=== PATIENT | female | born 1945 ===

== ENCOUNTER 2019-12-19 11:45 | Inpatient (IN) | payer OTHER ==
[~2019-12-19] VITALS: Ht 172.7 cm; Wt 97.5 kg
[2019-12-20] MEDS ORDERED: FORTAMET500 MG PO (13:22)
[2019-12-20] MEDS ORDERED: METROPOL PO (13:22)
[2019-12-20] MEDS ORDERED: OSTERA TABLET1 EACH (13:23)
[2019-12-20] MEDS ORDERED: [UNRECOGNIZED DRUG - OTHER] PO (13:23)
[2019-12-20] MEDS ORDERED: COZAAR50 MG PO (13:23)
[2019-12-20] MEDS ORDERED: PEPCID AC20 MG PO (13:24)
[2019-12-20] MEDS ORDERED: VIT PO (13:24)
[2019-12-20] MEDS ORDERED: ASPIR 8181 MG PO (13:25)
[2019-12-22] MEDS ORDERED: TOPROL XL100 M1 PO (09:50)
[2019-12-22] MEDS ORDERED: DAFLONEX-XL 11300 MG (09:52)
[2019-12-22] MEDS ORDERED: VITAMIN D35000 UNI2 PO (09:53)
== END 2019-12-23 10:20 | disposition home or self-care (01) | DRG 741 ==
LOC: O/R 12-22 08:10 → OB/GYN 12-22 08:10 → O/R 12-22 11:45 → OB/GYN 12-22 16:34 → O/R 12-22 18:45 → OB/GYN 12-23 10:20
PROVIDERS: ADMIT Obstetrics & Gynecology Gynecologic Oncology
PROC: 0UT74ZZ Resection of Bilateral Fallopian Tubes, Percutaneous Endoscopic Approach (ICD-10-PCS; 2019-12-22)
PROC: 0UT24ZZ Resection of Bilateral Ovaries, Percutaneous Endoscopic Approach (ICD-10-PCS; 2019-12-22)
PROC: 07BC4ZX Excision of Pelvis Lymphatic, Percutaneous Endoscopic Approach, Diagnostic (ICD-10-PCS; 2019-12-22)
PROC: 0UT94ZZ Resection of Uterus, Percutaneous Endoscopic Approach (ICD-10-PCS; principal; 2019-12-22 18:45)
DX: C54.1 Malignant neoplasm of endometrium (principal); I10 Essential (primary) hypertension; E11.65 Type 2 diabetes mellitus with hyperglycemia; Z79.4 Long term (current) use of insulin